=== PATIENT | female | born 1990 ===

== ENCOUNTER 2022-05-30 18:01 | Outpatient (REF) | payer OTHER, SELFPAY | END 2022-05-30 18:02 | disposition home or self-care (01) | LOC: HO.HOSX 18:01 | PROVIDERS: Visit Provider Physician Assistant | DX: Z13.89 Encounter for screening for other disorder (principal) ==

== ENCOUNTER 2023-02-07 08:26 | Outpatient (REF) | payer OTHER, SELFPAY | END 2023-02-07 08:27 | disposition home or self-care (01) | LOC: HO.HOSX 08:26 | PROVIDERS: Visit Provider Orthopaedic Surgery | DX: Z13.89 Encounter for screening for other disorder (principal) ==

== ENCOUNTER 2023-02-28 09:42 | Outpatient (REF) | payer OTHER, SELFPAY | END 2023-02-28 09:43 | disposition home or self-care (01) | LOC: HO.HOSX 09:42 | PROVIDERS: Visit Provider Orthopaedic Surgery | DX: Z13.89 Encounter for screening for other disorder (principal) ==

== ENCOUNTER 2023-03-08 07:47 | Outpatient (REF) | payer OTHER, SELFPAY | END 2023-03-08 07:48 | disposition home or self-care (01) | LOC: HO.HOSX 07:47 | PROVIDERS: Visit Provider Orthopaedic Surgery | DX: Z13.89 Encounter for screening for other disorder (principal) ==